=== PATIENT | male | born 1960 | race Caucasian/White ===

== ENCOUNTER 2018-03-30 16:30 | Observation (INO) | payer MEDICARE ==
[~2018-03-30] VITALS: Ht 180.3 cm; Wt 95.8 kg
--- NOTE | ~2018-03-30 | HP ---
PATIENT: SAMUEL BUITRAGO MEDICAL RECORD: [id number] ACCOUNT: [id number] LOCATION:[facility] D.2101 : 60 ADMISSION DATE: 03/30/18 PCP: RODRIGUEZ LOCKE DO HISTORY AND PHYSICAL EXAMINATION DIAGNOSES: 1. Unstable angina. 2. Coronary artery disease. 3. Previous PTCA stent. 4. Cardiomyopathy. 5. ICD. 6. COPD. 7. Smoking history. HISTORY OF PRESENT ILLNESS: This is a gentleman with a past history of coronary artery disease and he thinks his last stent was in 2014. He has had 1 week of increasing episodes of chest pain compatible with angina. His EKG does have ST-T changes with chest pain and without chest pain. He has T-wave inversions in the lateral leads with chest pain. PHYSICAL EXAMINATION: GENERAL APPEARANCE: Well-nourished, well-developed, appears stated age. Level of distress, comfortable. PSYCHIATRIC: Mental status, alert, normal affect. Orientation, oriented to time, place and person. EYES: Lids and conjunctiva, noninjected. No discharge, no pallor. ENT: Lips, teeth, gums, normal dentition. Oropharynx, no cyanosis, no pallor. NECK: Carotid arteries, bilateral normal upstroke, no bruits, no thrills. JUGULAR VEINS: No jugular venous pressure or distention. CERVICAL LYMPH NODES: Nontender, nonenlarged. THYROID: Not enlarged. Nontender. No nodules. LUNGS: Respiratory effort, unlabored. CHEST: Normal curvature. No thoracic deformity. No chest wall tenderness. Percussion, resonant. Auscultation, clear. No wheezes, no rales, no rhonchi. CARDIOVASCULAR: Precordial exam, nondisplaced. No heaves or pericardial thrills. Rate and rhythm, regular. Heart sounds, normal S1, normal S2. No S3, no gallop, no rub. Systolic murmur, not heard. Diastolic murmur, not heard. EXTREMITIES: No cyanosis, no edema. Peripheral pulses, full and equal in all extremities, except as noted. No bruits appreciated. ABDOMEN: Soft, nondistended. Normal aorta. No bruit. Nontender. No masses. Liver, nontender, no hepatomegaly. Spleen, nontender, no splenomegaly. MUSCULOSKELETAL: No joint tenderness. No joint swelling. No erythema. NEUROLOGICAL: Normal gait, normal strength, normal tone. SKIN: Warm and dry. OVERALL IMPRESSION: Chest pain with EKG changes and the patient with a past history of coronary artery disease, most likely he has recurrent hemodynamically significant coronary artery disease. We will proceed with coronary angiography. Further care depends upon the findings of the angiography. TRANSINT:[id number] Voice Confirmation ID: [id number] DOCUMENT ID: [id number] HISTORY AND PHYSICAL [id number] SAMUEL BUITRAGO JEFFREY MD CC: [id number] DICTATION DATE: 04/01/18816 PLASTIC PRODUCTION MACHINE SETTER: 04/01/18 1142 ADM IN [facility] [address] [id number]
--- NOTE | ~2018-03-30 | HEMODYNAMI ---
PATIENT:SAMUEL BUITRAGO MEDICAL RECORD: [id number] : 60 LOCATION:[facility] D.2101 ADMISSION DATE: 03/30/18 Generatedon:04/01/201811:21 Patient name: SAMUEL BUITRAGO Patient #: [id number] SSN: : 1960 Date of study: 04/01/2018 Page: Of Hemodynamic Procedure Report Patient Data Patient Demographics Procedure consent was obtained First Name: SAMUEL Gender: Male Last Name: MINNA : 1960 Patient #: [id number] Age: 57 year(s) Race: Unknown Additional ID: [id number] Contact details Address: [address] [address] State: [place] City: [place] Zip code: [address] Past Medical History Allergies Allergen Reaction Date Comments Reported Other allergy 04/01/2018 NSAIDS, Celebrex, Methocarbomol Admission Admission Data Admission Date: 03/30/2018 Admission Time: 21:14 Room #: D210 Lab Results Lab Result Date: 04/01/2018 Lab Result Time: 4:33 Biochemistry Name Units Result Min Max BUN mg/dl 16 --(---*)-- 7 18 Creatinine mg/dl 0.8 --(-*--)-- 0.6 1.3 CBC Name Units Result Min Max Hematocrit % 37 *-(----)-- 42 54 Hemoglobin g/dl 12.2 *-(----)-- 13.5 17.5 Procedure Procedure Types Cath Procedure Diagnostic Procedure LHC LHC w/Coronaries Procedure Description Procedure Date Procedure Date: 04/01/2018 Procedure Start Time: 11:14 Procedure End Time: 11:19 Procedure Staff Name Function Keny Wood MD Performing Physician Nelson Robles RT Monitor Corinne Oviedo RN Nurse Nell Arias RT Scrub Procedure Data Cath Procedure Fluoroscopy Diagnostic fluoroscopy Total fluoroscopy Time: 0.8 time: 0.8 min min Diagnostic fluoroscopy Total fluoroscopy dose: 356 dose: 356 mGy mGy Contrast Material Contrast Material Type Amount (ml) Isovue 300 37 Entry Location Entry Primary Successful Side Size Upsize Upsize Entry Closure Succes sful Closure Location (Fr) 1 (Fr) 2 (Fr) Remarks Device Remarks Femoral Right 5 Fr Exoseal artery Estimated blood loss: 5 ml Diagnostic catheters Device Type Used For End Catheter Placement MULTIPACK Pigtail 5 Fr Procedure catheter MULTIPACK JL 4.0 5Fr Procedure catheter MULTIPACK 3DRC 5Fr Procedure catheter Procedure Complications No complications Procedure Medications Medication Administration Route Dosage 0.9% NaCl I.V. 100 ml/hr Oxygen etCO2 Nasal cannula 2 l/min Lidocaine 2% added to field 20 Heparin Flush Bag added to field 2 bags (1000units/500ml NS) Versed I.V. 2 mg Fentanyl I.V. 100 mcg Versed I.V. 2 mg Hemodynamics Rest HGB: 12.2 (g/dl) Heart Rate: 70 (bpm) Snapshots Pre Cath Intra NCS Post Cath Vital Signs Time Heart Resp SPO2 etCO2 NIBP Rhythm Pain Sedation Rate (ipm) (%) (mmHg) (mmHg) Status Level (bpm) 10:56:45 73 22 97 35.8 108/66(85) NSR 0 (11) 10(A) , No pain 11:00:57 69 19 98 38.1 110/79(97) NSR 0 (11) 10(A) , No pain 11:05:11 70 26 98 39.4 103/73(90) NSR 0 (11) 10(A) , No pain 11:09:23 70 17 96 38.7 107/71(85) NSR 0 (11) 10(A) , No pain 11:13:35 71 15 97 36 99/65(82) NSR 0 (11) 10(A) , No pain 11:17:43 71 14 98 39 98/72(82) NSR 0 (11) 10(A) , No pain Medications Time Medication Route Dose Verified Delivered Reason Notes Eff ectiveness by by 10:55:43 0.9% NaCl I.V. 100 Keny Corinne used for ml/hr Nina Oviedo senior information security engineer 10:55:49 Oxygen etCO2 2 Keny Corinne used for Nasal l/min Nina Oviedo procedure cannula RN 10:55:54 Lidocaine 2% added 20ml Keny Bustillo for local to vial Nina Wood MD anesthetic field 10:56:00 Heparin Flush added 2 Keny Bustillo used for Bag to bags Nina Wood MD procedure (1000units/500ml field NS) 11:10:26 Versed I.V. 2 mg Keny Fontenotyla for Nina Oviedo sedation RN 11:10:35 Fentanyl I.V. 100 Keny Fontenotyla for mcg Nina Oviedo sedation RN 11:15:04 Versed I.V. 2 mg Keny Fontenotyla for Nina Oviedo sedation skin diving teacher Log Time Note 10:14:25 Time tracking: Regular hours (M-F 7:00 - 5:00) 10:14:30 Plan of Care:Hemodynamics will remain stable., Cardiac rhythm will remain stable., Comfort level will be maintained., Respiratory function will remain adequate., Patient/ family verbilizes understanding of procedure., Procedure tolerated without complication., Recovers from procedure without complications.. 10:14:32 Signed procedure consent form obtained from patient. 10:14:33 Diagnostic Cath status Elective 10:31:35 Nell Arias RT(R) sent for patient. Start room use. 10:50:26 Patient received from Med II to CCL 1 Alert and oriented. Tansferred to table in Supine position. 10:50:28 Warm blankets applied, and jeff hugger turned on for patient comfort. 10:50:28 Correct patient and procedure confirmed by team. 10:50:29 ECG and BP/O2 sat monitors applied to patient. 10:50:29 Pre-procedure instructions explained to patient. 10:50:30 Pre-op teaching completed and patient verbalized understanding. 10:50:31 Family in waiting room. 10:50:32 Patient NPO since Midnight. 10:55:34 Vital chart was started 10:55:43 0.9% NaCl 100 ml/hr I.V. was administered by Corinne Oviedo RN; used for procedure; 10:55:49 Oxygen 2 l/min etCO2 Nasal cannula was administered by Corinne Oviedo RN; used for procedure; 10:55:54 Lidocaine 2% 20ml vial added to field was administered by Keny Wood MD; for local anesthetic; 10:56:00 Heparin Flush Bag (1000units/500ml NS) 2 bags added to field was administered by Keny Wood MD; used for procedure; 11:05:31 Baseline sample Acquired. 11:05:37 Rhythm: sinus rhythm , paced 11:05:39 Full Disclosure recording started 11:06:46 H&P Date Dictated: 03/30/2018 Within 30 days and on chart.. 11:07:23 Patient allergic to Other allergyNSAIDS, Celebrex, Methocarbomol 11:07:24 Is the patient allergic to Iodine/contrast media? No. 11:07:28 Is patient on blood thinner?No 11:07:29 Patient diabetic? No. 11:07:32 Previous problem with sedation/anesthesia? No ? 11:07:34 Snore? No 11:07:35 Sleep apnea? No 11:07:36 Deviated septum? No 11:07:37 Opens mouth fully? Yes 11:07:39 Sticks out tongue? Yes 11:07:42 Airway obstruction? Yes COPD 11:07:46 Dentures? Yes IN TIGHT 11:08:00 Pre procedure: right posterior tibial pulse 2+ Normal; easily identifiable; not easily obliterated 11:08:06 IV patent on arrival in right wrist with 0.9% NaCl at [facility]. 11:08:58 Lab Result : Creatinine 0.8 mg/dl 11:08:58 Lab Result : BUN 16 mg/dl 11:08:58 Lab Result : Hemoglobin 12.2 g/dl 11:08:58 Lab Result : Hematocrit 37 % 11:09:00 Lab results completed and on chart. 11:09:02 Right groin area was prepped with chlora-prep and draped in sterile fashion 11:09:04 Alarms reviewed by R. N. 11:09:04 Sharps counted by scrub and verified by R.N. 11:09:06 Use device set Femoral Dx 11:09:06 ACIST Syringe (56446) opened to sterile field. 11:09:07 Bag Decanter (2002S) opened to sterile field. 11:09:07 Medline Cath Pack ([id number]) opened to sterile field. 11:09:11 ACIST Hand Control (01768) opened to sterile field. 11:09:11 ACIST Manifold (77693) opened to sterile field. 11:09:13 Tegaderm 4 x 4 (1626W) opened to sterile field. 11:09:13 SHEATH 5FR Lamont (ILF574) opened to sterile field. 11:09:15 DIAGNOSTIC Multipack 5Fr catheter set ([id number]) opened to sterile field. 11::15 DIAGNOSTIC WIRE .035 260cm J wire (346798) opened to sterile field. :: Physician arrived 11: --------ALL STOP TIME OUT------ : Final Timeout: patient, procedure, and site verified with staff and physician. All members of the team are in agreement. 11::24 Right groin site verified by team. :: Physical assessment completed. ASA score P 3 - A patient with severe systemic disease as per Keny Wood MD. 11::30 Sedation plan: IV Moderate Sedation Medication:Versed, Fentanyl ::26 Versed 2 mg I.V. was administered by Corinne Oviedo RN; for sedation; ::35 Fentanyl 100 mcg I.V. was administered by Corinne Oviedo RN; for sedation; :14:23 Procedure started. 11:14:26 Local anesthetic to right femoral artery with Lidocaine 2% by Keny Wood MD.INITIAL ACCESS ONLY 11:14:33 A 5 Fr sheath was inserted into the Right Femoral artery 11:14:42 A MULTIPACK Pigtail 5 Fr catheter was advanced over the wire and used for Procedure. 11:15:04 Versed 2 mg I.V. was administered by Corinne Oviedo RN; for sedation; 11:15:19 LV gram done using SCHUSTER ::21 Injector settings: Ml/sec: 10, Volume: 20, 11:15:33 EF : 20 % 11:15:36 Catheter exchanged over wire. 11:15:43 A MULTIPACK JL 4.0 5Fr catheter was advanced over the wire and used for Procedure. 11:16:09 LCA angiography performed. 11:16:50 Catheter exchanged over wire. 11:16:55 A MULTIPACK 3DRC 5Fr catheter was advanced over the wire and used for Procedure. 11:17:37 RCA angiography performed. 11:18:02 Catheter removed. 11:18:04 EXOSEAL 5Fr (EX500) opened to sterile field. 11:18:10 Sheath removed intact; hemostasis achieved with Exoseal to the Right Femoral artery. 11:18:12 Procedure ended.(Physican Out) 11:18:49 Fluoroscopy time 00.80 minutes. 11:18:54 Flurop Dose total: 356 11:18:54 Fluoroscopy dose: 356 mGy 11:18:57 Contrast amount:Isovue 300 37ml. 11:18:58 Sharps counted by scrub and verified by R.N. 11:18:59 Insertion/operative site no bleeding no hematoma. 11:19:02 Post-op/insertion site Right Femoral artery dressed using a 4 x 4 and Tegaderm. 11:19:05 Post right femoral artery:stable, soft, clean and dry 11:19:07 Post Procedure Pulses reassessed and unchanged 11:19:10 Post-procedure physical assessment completed. ASA score P 3 - A patient with severe systemic disease as per Keny Wood MD. 11:19:13 Post procedure rhythm: unchanged. 11:19:17 Estimated blood loss: 5 ml 11:19:19 Post procedure instruction explained to patient.Patient verbalizes understanding. 11:19:19 Patient needs reinforcement of post procedure teaching. 11:19:39 Procedure and supply charges have been captured, reviewed, submitted and are correct. 11:19:42 Procedure Complication : No complications 11:19:43 Vital chart was stopped 11:19:45 See physician's report for complete and final results. 11:19:46 Report given to PCU. 11:19:49 Patient transfered to PCU with Stretcher. 11:19:52 Procedure ended. 11:19:52 Full Disclosure recording stopped 11:19:56 End room use (Document Last) Device Usage Item Name Manufacture Quantity Catalog Hospital Part Current Minimal L ot# / Number Charge Number Stock Stock Serial# Code ACIST Acist 1 38534 309600 013828 [id number] 20 Syringe Medical (55888) Systems Inc Bag Microtek 1 2001S 940127 44208 940473 5 Decanter Medical Inc. () Medline Medline 1 [id number] 380121 03523 948993 5 Cath Pack ([id number]) ACIST Hand Acist 1 45008 616704 601343 309475 5 Control Medical (74610) Systems Inc ACIST Acist 1 43060 194258 349943 852569 5 Manifold Medical (12819) Systems Inc Tegaderm 4 3M 1 1626W 568434 400763 271575 5 x 4 (1626W) SHEATH 5FR Terumo 1 KPB372 867686 824691 628997 5 Lamont (KDZ641) DIAGNOSTIC Cardinal 1 ES5299 943363 46893 834245 30 Multipack Health 5Fr catheter set (TE8198) DIAGNOSTIC St Dank 1 632248 578461 384554 234432 30 WIRE .035 260cm J wire (717531) MULTIPACK Cardinal 1 637598 5 Pigtail 5 Health Fr catheter MULTIPACK Cardinal 1 408337 5 JL 4.0 5Fr Health catheter MULTIPACK Cardinal 1 406436 5 3DRC 5Fr Health catheter EXOSEAL 5Fr Cardinal 1 EX500 374252 318311 461985 10 (EX500) Health Signature Audit [place] Stage Time Signature Unsigned Intra-Procedure 04/01/2018 Nelson Robles 11:21:34 AM RT(R) Signatures Monitor : Nelson Robles RT Signature : Date : Time : [id number] [place] [address]
--- NOTE | ~2018-03-30 | OP ---
PATIENT NAME: SAMUEL BUITRAGO MEDICAL RECORD: [id number] :60 LOCATION:D.M2 D.2101 ADMISSION DATE:03/30/18 SURGEON: KENDALL PETERSON MD DATE OF OPERATION: 04/01/2018 PROCEDURES: 1. Left heart catheterization. 2. Selective coronary angiography. 3. Left ventriculogram. INDICATION: Shortness of breath, angina, coronary artery disease, and cardiomyopathy. PROCEDURE IN DETAIL: After informed consent was obtained and after a detailed description of the risks, benefits as well as alternative therapies, the patient elected to proceed with angiogram and heart catheterization. The right femoral area was prepped and draped in normal sterile fashion. Right femoral artery was cannulated via modified Seldinger technique with placement of 6-Cymro sheath. All catheters exchanged through this sheath. FINDINGS: Left ventriculogram was performed in standard 30-degree SCHUSTER view, reveals global hypokinesis throughout all segments. Overall ejection fraction in the 20% range. SELECTIVE CORONARY ANGIOGRAPHY: 1. Left main is with no significant angiographic disease. 2. Left anterior descending has moderate irregularities, but no flow-limiting stenosis. 3. The left circumflex has moderate irregularities, but no flow-limiting stenosis. 4. Right coronary artery is chronically totally occluded. Distal right coronary artery fills via left to right collaterals. OVERALL IMPRESSION: Wide patency of the left system, total occlusion of the right coronary artery, which is chronic total occlusion with an ischemic cardiomyopathy, unchanged from 2015 angiography. Center medical management and treatment of the coronary artery disease and cardiomyopathy. TRANSINT:[id number] Voice Confirmation ID: [id number] DOCUMENT ID: [id number] KENDALL PETERSON MD CC: [id number] DICTATION DATE: 04/01/18 1121 UNLOADER: 04/01/18 1201 ADM IN [facility] [address] [place] [address]
[2018-03-30 17:39] LABS: BASOPHILS 0.4 % (0-2); EOSINOPHILS 2.5 % (0-7); HEMATOCRIT 40.4 % (42.0-54.0); HEMOGLOBIN 13.5 g/dL (13.5-17.5); LYMPHOCYTES 31.1 % (15-50); MCH 31.3 pg (26.0-34.0); MCHC 33.4 g/dL (31.0-37.0); MCV 93.7 fL (80.0-100.0); MEAN PLATELET VOLUME 10.9 fL (7.4-10.4); MONOCYTES 12.2 % (2-11); NEUTROPHILS 52.8 % (40-80); PLATELET COUNT 199 10x3/uL (130-400); RBC 4.31 10x6/uL (4.20-6.10); RDW 12.5 % (11.5-14.5); WBC 7.9 10x3/uL (4.8-10.8)
[2018-03-30 17:55] LABS: ALBUMIN 3.4 g/dL (3.4-5.0); ALKALINE PHOSPHATASE 86 U/L (46-116); ALT (SGPT) 23 U/L (10-68); CALC OSMOLALITY 273 mosm/kg (275-300); CALCIUM 8.6 mg/dL (8.5-10.1); CARBON DIOXIDE 29.9 mmol/L (21.0-32.0); CHLORIDE - SERUM 102 mmol/L (98-107); CREATININE - SERUM 0.8 mg/dL (0.6-1.3); GLUCOSE 89 mg/dL (74-106); POTASSIUM - SERUM 5.4 mmol/L (3.5-5.1); PROTEIN - SERUM 7.1 g/dL (6.4-8.2); SODIUM 138 mmol/L (136-145); UREA NITROGEN 10 mg/dL (7-18); eGFR NON AFRICAN AMERICAN > 90 mL/min (90-120)
[2018-03-30 18:00] VITALS: BP 111/76
[2018-03-30 18:00] LABS: TROPONIN-I < 0.017 ng/mL (0.000-0.060)
[2018-03-30 19:41] VITALS: BP 104/80
[2018-03-30 21:49] VITALS: BP 116/68
[2018-03-30 21:56] LABS: CKMB 2.7 U/L (0.0-3.6); CREATINE KINASE 70 UL (21-232)
[2018-03-30 22:01] LABS: TROPONIN-I < 0.017 ng/mL (0.000-0.060)
[2018-03-31] VITALS: BP 105/66
[2018-03-31 03:08] LABS: BASOPHILS 0.5 % (0-2); HEMATOCRIT 37.3 % (42.0-54.0); HEMOGLOBIN 12.4 g/dL (13.5-17.5); IMMATURE GRANULOCYTES 0.8 % (0-5); MCHC 33.2 g/dL (31.0-37.0); MCV 93.3 fL (80.0-100.0); MEAN PLATELET VOLUME 9.9 fL (7.4-10.4); MONOCYTES 13.4 % (2-11); NEUTROPHILS 47.3 % (40-80); PLATELET COUNT 161 10x3/uL (130-400); RDW 12.4 % (11.5-14.5); WBC 7.9 10x3/uL (4.8-10.8)
[2018-03-31 03:24] VITALS: BP 104/71; BMI 23.7
[2018-03-31 03:46] LABS: CALCIUM 7.8 mg/dL (8.5-10.1); CARBON DIOXIDE 30.8 mmol/L (21.0-32.0); CHLORIDE - SERUM 104 mmol/L (98-107); CKMB 2.1 U/L (0.0-3.6); CREATINE KINASE 63 UL (21-232); CREATININE - SERUM 0.9 mg/dL (0.6-1.3); GLUCOSE 85 mg/dL (74-106); MAGNESIUM - SERUM 1.9 mg/dL (1.8-2.4); SODIUM 141 mmol/L (136-145); eGFR NON AFRICAN AMERICAN > 90 mL/min (90-120)
[2018-03-31 03:49] LABS: CALC OSMOLALITY 280 mosm/kg (275-300); POTASSIUM - SERUM 3.8 mmol/L (3.5-5.1); TROPONIN-I < 0.017 ng/mL (0.000-0.060); UREA NITROGEN 15 mg/dL (7-18)
[2018-03-31 08:13] VITALS: BP 106/67
[2018-03-31 10:40] LABS: CKMB 2.1 U/L (0.0-3.6); CREATINE KINASE 74 UL (21-232)
[2018-03-31 10:42] LABS: TROPONIN-I < 0.017 ng/mL (0.000-0.060)
[2018-03-31 11:57] VITALS: BP 100/60
[2018-03-31 16:16] VITALS: BP 110/69
[2018-03-31 16:22] LABS: % SATURATION 21 % (15-55); IRON 63 ug/dl (35-150); TOTAL IRON BIND CAPACITY 287 ug/dl (260-445); UNSAT IRON BIND CAPACITY 224 ug/dl (150-375)
[2018-03-31 16:32] LABS: UDS - AMPHET NEGATIVE QUAL (NEGATIVE); UDS - BARB NEGATIVE QUAL (NEGATIVE); UDS - BENZO NEGATIVE QUAL (NEGATIVE); UDS - COCAINE NEGATIVE QUAL (NEGATIVE); UDS - OPIATE NEGATIVE QUAL (NEGATIVE); UDS - PCP NEGATIVE QUAL (NEGATIVE); UDS - THC NEGATIVE QUAL (NEGATIVE)
[2018-03-31 16:37] LABS: APPEARANCE CLEAR (CLEAR); BILIRUBIN NEGATIVE (NEGATIVE); COLOR YELLOW (YELLOW); GLUCOSE NEGATIVE (NEGATIVE); KETONE NEGATIVE (NEGATIVE); NITRITE NEGATIVE (NEGATIVE); PROTEIN NEGATIVE (NEGATIVE)
[2018-03-31 20:51] LABS: CKMB 1.9 U/L (0.0-3.6); CREATINE KINASE 64 UL (21-232); TROPONIN-I < 0.017 ng/mL (0.000-0.060)
[2018-03-31 21:09] VITALS: BP 114/66
[2018-04-01 02:02] LABS: CKMB 1.7 U/L (0.0-3.6); CREATINE KINASE 59 UL (21-232); TROPONIN-I < 0.017 ng/mL (0.000-0.060)
[2018-04-01 04:00] VITALS: BP 115/71
[2018-04-01 05:33] LABS: BASOPHILS 0.4 % (0-2); EOSINOPHILS 2.7 % (0-7); HEMOGLOBIN 12.2 g/dL (13.5-17.5); IMMATURE GRANULOCYTES 0.7 % (0-5); LYMPHOCYTES 41.6 % (15-50); MCV 93.9 fL (80.0-100.0); MEAN PLATELET VOLUME 10.4 fL (7.4-10.4); MONOCYTES 11.8 % (2-11); NEUTROPHILS 42.8 % (40-80); PLATELET COUNT 183 10x3/uL (130-400); RBC 3.94 10x6/uL (4.20-6.10); RDW 12.5 % (11.5-14.5); WBC 7.4 10x3/uL (4.8-10.8)
[2018-04-01 05:39] LABS: CALC OSMOLALITY 280 mosm/kg (275-300); CARBON DIOXIDE 29.1 mmol/L (21.0-32.0); CHLORIDE - SERUM 104 mmol/L (98-107); CREATININE - SERUM 0.8 mg/dL (0.6-1.3); GLUCOSE 80 mg/dL (74-106); POTASSIUM - SERUM 3.7 mmol/L (3.5-5.1); SODIUM 141 mmol/L (136-145); UREA NITROGEN 16 mg/dL (7-18); eGFR NON AFRICAN AMERICAN > 90 mL/min (90-120)
[2018-04-01 08:20] LABS: FOLATE (FOLIC ACID) - SERUM 19.9 ng/mL (>3.0)
[2018-04-01 09:00] VITALS: BP 84/50
[2018-04-01 09:07] LABS: CKMB 2.8 U/L (0.0-3.6); CREATINE KINASE 76 UL (21-232); TROPONIN-I < 0.017 ng/mL (0.000-0.060)
[2018-04-01 18:41] VITALS: BP 85/51
[2018-04-01] MEDS ORDERED: LISINOPRIL2.5 MG PO (19:48)
[2018-04-01] MEDS ORDERED: LEVOTHYROXINE50 MCG PO (19:49)
[2018-04-01] MEDS ORDERED: FUROSEMIDE20 MG PO (19:49)
[2018-04-01] MEDS ORDERED: PLAVIX75 MG PO (19:50)
[2018-04-01] MEDS ORDERED: LIPITOR40 MG PO (19:51)
[2018-04-01] MEDS ORDERED: ALDACTONE25 MG PO (19:52)
[2018-04-01] MEDS ORDERED: PEPCID AC20 MG PO (19:52)
[2018-04-01] MEDS ORDERED: PROZAC40 MG PO (19:53)
[2018-04-01 20:00] VITALS: BP 102/63
[2018-04-02 00:09] VITALS: BP 109/73
[2018-04-02 04:00] VITALS: BP 100/62
[2018-04-02 05:57] LABS: BASOPHILS 0.3 % (0-2); EOSINOPHILS 2.7 % (0-7); HEMATOCRIT 34.8 % (42.0-54.0); HEMOGLOBIN 11.4 g/dL (13.5-17.5); IMMATURE GRANULOCYTES 0.7 % (0-5); LYMPHOCYTES 32.8 % (15-50); MCHC 32.8 g/dL (31.0-37.0); MCV 94.6 fL (80.0-100.0); MEAN PLATELET VOLUME 10.4 fL (7.4-10.4); MONOCYTES 11.1 % (2-11); NEUTROPHILS 52.4 % (40-80); PLATELET COUNT 177 10x3/uL (130-400); RBC 3.68 10x6/uL (4.20-6.10); RDW 12.6 % (11.5-14.5); WBC 6.9 10x3/uL (4.8-10.8)
[2018-04-02 06:18] LABS: CALC OSMOLALITY 283 mosm/kg (275-300); CALCIUM 7.8 mg/dL (8.5-10.1); CARBON DIOXIDE 28.2 mmol/L (21.0-32.0); CHLORIDE - SERUM 106 mmol/L (98-107); CREATININE - SERUM 0.9 mg/dL (0.6-1.3); GLUCOSE 101 mg/dL (74-106); POTASSIUM - SERUM 3.6 mmol/L (3.5-5.1); SODIUM 142 mmol/L (136-145); UREA NITROGEN 14 mg/dL (7-18); eGFR NON AFRICAN AMERICAN > 90 mL/min (90-120)
[2018-04-02 08:17] VITALS: BP 106/64
[2018-04-02 10:36] VITALS: Ht 180.3 cm; Wt 95.8 kg
[2018-04-02 11:05] VITALS: BP 100/63
== END 2018-04-02 16:30 | disposition home or self-care (01) ==
LOC: D.ER 16:30 → D.EDHOLD 21:14 → OBSVTIME 21:14 → D.M2 21:14
PROVIDERS: Emergency Medicine; Family Medicine; Internal Medicine Nephrology
DX: I25.119 Atherosclerotic heart disease of native coronary artery with unspecified angina pectoris (principal); I25.82 Chronic total occlusion of coronary artery; I50.23 Acute on chronic systolic (congestive) heart failure; I42.9 Cardiomyopathy, unspecified; J44.1 Chronic obstructive pulmonary disease with (acute) exacerbation; D64.9 Anemia, unspecified; E87.5 Hyperkalemia